=== PATIENT | male | born 1930 | race Caucasian/White ===

== ENCOUNTER → 2017-04-17 | Outpatient (CLI) | payer MEDICARE, BC ==
[2017-04-17 14:39] LABS: Basophils % (A) 1 %; CH 32.1; CHCM 32.6; Eosinophils # (A) 0.4 k/uL (0-0.7); Eosinophils % (A) 7 %; HCT 41.5 % (39.0-53.0); HDW 2.31; HGB 13.3 gm/dL (13.0-17.5); Luc # (Auto) 0.19; Luc % (Auto) 3; Lymphocytes # (A) 0.7 k/uL (1.0-4.8); Lymphocytes % (A) 13 %; MCH 31.6 pg (25.0-35.0); MCV 98.8 fL (80.0-100.0); Mean Platelet Volume 6.6; Monocytes # (A) 0.4 k/uL (0-1.0); Monocytes % (A) 7 %; Neutrophils # (A) 3.8 k/uL (1.3-7.7); Neutrophils % (A) 69 %; RBC 4.21 m/uL (4.30-5.90); RDW 13.5 % (11.5-15.5); WBC 5.5 k/uL (3.8-10.6); WBC (Perox) 5.44
[2017-04-17 14:45] LABS: Calcium 9.1 mg/dL (8.4-10.2); Potassium 4.5 mmol/L (3.5-5.1); Total Bilirubin 0.6 mg/dL (0.2-1.3); Total Protein 7.1 g/dL (6.3-8.2)
== END ==
LOC: LABWHC1 14:04
PROVIDERS: ATTEND Internal Medicine
DX: N18.9 Chronic kidney disease, unspecified (principal)
CPT/HCPCS: 36415; 80053; 85025

== ENCOUNTER → 2017-04-22 | Outpatient (CLI) | payer MEDICARE, BC ==
--- NOTE | 2017-04-22 22:01 | US ---
EXAMINATION TYPE: US kidneys/renal and bladder DATE OF EXAM: 04/22/2017 COMPARISON: CT CLINICAL HISTORY: N28.9 Known Renal disease or anomaly. EXAM MEASUREMENTS: Right Kidney: 9.6 x 3.8 x 4.8 cm Left Kidney: 10.0 x 4.9 x 3.8 cm Right Kidney: No hydronephrosis or masses seen Left Kidney: No hydronephrosis or masses seen Bladder: wnl Bilateral Jets seen: Yes There is no evidence for hydronephrosis at this point in time. No nephrolithiasis is seen. No migdalia s are identified. The urinary bladder is anechoic. Bilateral ureteral jets are seen. IMPRESSION: No significant abnormality.
== END | disposition home or self-care (01) ==
LOC: RADUSMAIN 17:41
PROVIDERS: ATTEND Internal Medicine
DX: N28.9 Disorder of kidney and ureter, unspecified (principal)
CPT/HCPCS: 76770

== ENCOUNTER → 2017-07-10 | Outpatient (CLI) | payer MEDICARE, BC ==
[2017-07-10 15:14] LABS: Potassium 5.2 mmol/L (3.5-5.1)
== END | disposition home or self-care (01) ==
LOC: LABWHC1 14:14
PROVIDERS: ATTEND Internal Medicine
DX: N18.9 Chronic kidney disease, unspecified (principal)
CPT/HCPCS: 36415; 80048

== ENCOUNTER → 2017-11-17 | Outpatient (CLI) | payer MEDICARE, BC ==
[2017-11-17 13:37] LABS: Appearance,Urine Clear (Clear); Bilirubin,Urine Negative (Negative); Blood,Urine Negative (Negative); Color,Urine Light Yellow; Glucose,Urine (UA) Negative (Negative); Ketones,Urine Negative (Negative); Leukocyte Esterase,Urine Negative (Negative); Nitrite,Urine Negative (Negative); Protein,Urine Negative (Negative); Specific Gravity,Urine 1.007 (1.001-1.035); Urobilinogen,Urine <2.0 mg/dL (<2.0)
[2017-11-17 13:54] LABS: Calcium 9.9 mg/dL (8.4-10.2); Magnesium 2.2 mg/dL (1.6-2.3); Phosphorus 3.8 mg/dL (2.5-4.5); Potassium 5.5 mmol/L (3.5-5.1); Total Bilirubin 0.5 mg/dL (0.2-1.3); Total Protein 6.9 g/dL (6.3-8.2); Uric Acid 7.8 mg/dL (3.5-8.5)
[2017-11-17 21:49] LABS: Parathyroid Hormone Intact 91.7 pg/mL (14.0-72.0)
== END | disposition home or self-care (01) ==
LOC: LABWHC1 12:41
PROVIDERS: ATTEND Internal Medicine
DX: N18.3 Chronic kidney disease, stage 3 (moderate) (principal); N39.0 Urinary tract infection, site not specified; N25.81 Secondary hyperparathyroidism of renal origin; E55.9 Vitamin D deficiency, unspecified; M10.9 Gout, unspecified
CPT/HCPCS: 36415; 80053; 81003; 82306; 82570; 83735; 83970; 84100; 84156; 84550

== ENCOUNTER → 2018-03-04 | Outpatient (CLI) | payer MEDICARE, BC ==
[2018-03-04 13:11] LABS: HCT 41.6 % (39.0-53.0); HGB 13.7 gm/dL (13.0-17.5); MCH 31.7 pg (25.0-35.0); MCHC 32.9 g/dL (31.0-37.0); MCV 96.4 fL (80.0-100.0); Mean Platelet Volume 6.8; Platelet Count 223 k/uL (150-450); RBC 4.32 m/uL (4.30-5.90); RDW 13.5 % (11.5-15.5); WBC 6.1 k/uL (3.8-10.6)
[2018-03-04 13:43] LABS: Calcium 9.5 mg/dL (8.4-10.2); Magnesium 2.2 mg/dL (1.6-2.3); Phosphorus 4.4 mg/dL (2.5-4.5); Potassium 5.6 mmol/L (3.5-5.1); Total Bilirubin 0.5 mg/dL (0.2-1.3); Total Protein 6.9 g/dL (6.3-8.2); Uric Acid 6.8 mg/dL (3.5-8.5)
[2018-03-04 19:14] LABS: Vitamin D 25 Hydroxy 38.4 ng/mL (30.0-100.0)
[2018-03-04 20:47] LABS: Parathyroid Hormone Intact 106.7 pg/mL (14.0-72.0)
== END | disposition home or self-care (01) ==
LOC: LABWHC1 12:42
PROVIDERS: ATTEND Internal Medicine
DX: N18.3 Chronic kidney disease, stage 3 (moderate) (principal); D64.9 Anemia, unspecified; N25.81 Secondary hyperparathyroidism of renal origin; E55.9 Vitamin D deficiency, unspecified; M10.9 Gout, unspecified
CPT/HCPCS: 36415; 80053; 82306; 83735; 83970; 84100; 84550; 85027

== ENCOUNTER → 2019-01-12 | Outpatient (CLI) | payer MEDICARE, BC ==
[2019-01-13 01:45] LABS: Albumin 4.2 g/dL (3.80-4.90); Anion Gap 10.8 mmol/L (4.00-12.00); Calcium 9.2 mg/dL (8.7-10.3); Carbon Dioxide 26.2 mmol/L (21.6-31.8); Globulin 2.1 g/dL (1.6-3.3); Potassium 4.7 mmol/L (3.5-5.5); Total Bilirubin 0.5 mg/dL (0.2-1.2); Total Protein 6.3 g/dL (6.2-8.2)
== END ==
LOC: LABWHC1 15:40
PROVIDERS: ATTEND Internal Medicine Interventional Cardiology
DX: I48.1 Persistent atrial fibrillation (principal)
CPT/HCPCS: 36415; 80053; 84443

== ENCOUNTER 2020-04-06 16:08 | Emergency (ER) | payer MEDICARE, BC ==
[2020-04-06 16:23] VITALS: RESP 18; TEMP 97.7
--- NOTE | 2020-04-06 16:46 | ED ---
Fall HPI - General Chief Complaint: Fall Stated Complaint: fall, lt knee injury Time Seen by Provider: 04/06/20 16:16 Source: EMS Mode of arrival: EMS - History of Present Illness Initial Comments: Patient is an 89-year-old male presenting to the emergency department after a fall. Patient states she was sitting at his kitchen table reading within the next he knew he woke up on the ground. Patient states he has been falling asleep very easily over the past 2 weeks. Patient states he landed mostly on his right side. He states he is on Eliquis secondary to A. fib. He states he was not able to get up by himself so he was able to get to his phone and called his daughters. His daughters came to the house and called EMS. Patient is complaining of some pain of his left knee however he states he needs a replacement in his knee and this is been a chronic issue. He states he is having some mild right chest discomfort from landing on the right side. He does admit to an increase of shortness of breath over the past few days. He is not on oxygen at home. He denies any neck pain. He states he is simply sore. He has no further complaints at this time. - Related Data Allergies Allergy/AdvReac Type Severity Reaction Status Date / Time No Known Allergies Allergy Verified 04/06/20 18:16 Review of Systems ROS Statement: Those systems with pertinent positive or pertinent negative responses have been documented in the HPI. ROS Other: All systems not noted in ROS Statement are negative. Past Medical History Past Medical History: Atrial Fibrillation, Hypertension History of Any Multi-Drug Resistant Organisms: None Reported Additional Past Surgical History / Comment(s): Cataract surgery left eye-2019 Past Psychological History: No Psychological Hx Reported Smoking Status: Never smoker Past Alcohol Use History: None Reported Past Drug Use History: None Reported General Exam - General Exam Comments Initial Comments: GENERAL: Well-appearing, well-nourished and in no acute distress. HEAD: Atraumatic, normocephalic. No hematomas. No signs of basal skull fracture. EYES: Pupils equal round and reactive to light, extraocular movements intact, sclera anicteric, conjunctiva are normal. ENT: TMs normal, nares patent, oropharynx clear without exudates. Moist mucous membranes. NECK: Patient arrived in c-collar. After c-collar was cleared, patient has normal, pain-free range of motion. No midline tenderness. Supple without lymphadenopathy or JVD. LUNGS: Decreased sounds on the right compared to left No wheezes rales or rhonchi. Mild pain with palpation of the right lateral ribs. HEART: Regular rate and rhythm without murmurs, rubs or gallops. ABDOMEN: Soft, nontender, normoactive bowel sounds. No guarding, no rebound. No masses appreciated. : Deferred EXTREMITIES: Mild pain to palpation of the left knee, full range of motion. Full range of motion of other 3 extremities. No pitting or edema. No clubbing or cyanosis. NEUROLOGICAL: Cranial nerves II through XII grossly intact. Normal speech, normal gait. PSYCH: Normal mood, normal affect. SKIN: Warm, Dry, normal turgor, no rashes or lesions noted. Limitations: no limitations Course Vital Signs 04/06/20 04/06/20 04/06/20 16:16 16:30 17:00 Temperature 97.7 F Pulse Rate 71 88 90 Respiratory 18 18 18 Rate Blood Pressure 135/87 135/87 120/85 O2 Sat by Pulse 99 96 97 Oximetry 04/06/20 04/06/20 04/06/20 17:30 18:00 18:23 Temperature Pulse Rate 87 91 96 Respiratory 18 18 18 Rate Blood Pressure 139/82 139/82 142/89 O2 Sat by Pulse 97 97 98 Oximetry 04/06/20 04/06/20 19:10 20:35 Temperature Pulse Rate 102 H 79 Respiratory 18 18 Rate Blood Pressure 142/91 132/84 O2 Sat by Pulse 98 96 Oximetry Medical Decision Making - Medical Decision Making Patient is an 89-year-old male presenting after falling at home. Patient is on a Eliquis tachycardia. A. fib. Patient's exam reveals a sore left knee however this is chronic in nature, right-sided rib pain. CT of the brain shows no acute intracranial hemorrhage, C-spine shows no acute fracture. Chest x-ray and x-ray of the right ribs showed no acute rib fracture or pneumothorax. There is a stable chronic right pleural effusion. 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 Patient's lab work shows no acute abnormalities. Urine shows no signs of infection, troponin is normal, patient's EKG shows A. fib, similar to previous. Patient to receive pain medicine in the ER and has been feeling improvement. Patient was able to stand and ambulate around his hospital bed. He normally uses a walker at home. Patient's daughter is here with him now and is comfortable with patient going home. Patient is also wanting to be discharged home. Patient's daughter states she will stay with him tonight. Strict return parameters were discussed with the patient and his daughter and they both verbalized understanding. Case discussed with Dr. Lu. - Lab Data Result diagrams: 04/06/20 16:50 04/06/20 16:50 Lab Results 04/06/20 04/06/20 04/06/20 Range/Units 16:50 16:50 16:50 WBC 6.4 (3.8-10.6) k/uL RBC 3.99 L (4.30-5.90) m/uL Hgb 13.2 (13.0-17.5) gm/dL Hct 41.4 (39.0-53.0) % MCV 103.9 H (80.0-100.0) fL MCH 33.2 (25.0-35.0) pg MCHC 32.0 (31.0-37.0) g/dL RDW 14.7 (11.5-15.5) % Plt Count 148 L (150-450) k/uL Neutrophils % 78 % Lymphocytes % 5 % Monocytes % 9 % Eosinophils % 6 % Basophils % 1 % Neutrophils # 5.0 (1.3-7.7) k/uL Lymphocytes # 0.3 L (1.0-4.8) k/uL Monocytes # 0.6 (0-1.0) k/uL Eosinophils # 0.4 (0-0.7) k/uL Basophils # 0.0 (0-0.2) k/uL Macrocytosis Slight PT 11.4 (9.0-12.0) sec INR 1.1 (<1.2) APTT 25.6 (22.0-30.0) sec Sodium 131 L (137-145) mmol/L Potassium 5.2 H (3.5-5.1) mmol/L Chloride 94 L (98-107) mmol/L Carbon Dioxide 28 (22-30) mmol/L Anion Gap 9 mmol/L BUN 46 H (9-20) mg/dL Creatinine 1.65 H (0.66-1.25) mg/dL Est GFR (CKD-EPI)AfAm 42 (>60 ml/min/1.73 sqM) Est GFR (CKD-EPI)NonAf 37 (>60 ml/min/1.73 sqM) Glucose 124 H (74-99) mg/dL Calcium 9.1 (8.4-10.2) mg/dL Magnesium 2.2 (1.6-2.3) mg/dL Total Bilirubin 0.8 (0.2-1.3) mg/dL AST 27 (17-59) U/L ALT 17 (4-49) U/L Alkaline Phosphatase 96 (38-126) U/L Troponin I (0.000-0.034) ng/mL Total Protein 6.9 (6.3-8.2) g/dL Albumin 3.9 (3.5-5.0) g/dL Urine Color Urine Appearance (Clear) Urine pH (5.0-8.0) Ur Specific [place] (1.001-1.035) Urine Protein (Negative) Urine Glucose (UA) (Negative) Urine Ketones (Negative) Urine Blood (Negative) Urine Nitrite (Negative) Urine Bilirubin (Negative) Urine Urobilinogen (<2.0) mg/dL Ur Leukocyte Esterase (Negative) Urine RBC (0-5) /hpf Urine WBC (0-5) /hpf 04/06/20 04/06/20 Range/Units 16:50 18:04 WBC (3.8-10.6) k/uL RBC (4.30-5.90) m/uL Hgb (13.0-17.5) gm/dL Hct (39.0-53.0) % MCV (80.0-100.0) fL MCH (25.0-35.0) pg MCHC (31.0-37.0) g/dL RDW (11.5-15.5) % Plt Count (150-450) k/uL Neutrophils % % Lymphocytes % % Monocytes % % Eosinophils % % Basophils % % Neutrophils # (1.3-7.7) k/uL Lymphocytes # (1.0-4.8) k/uL Monocytes # (0-1.0) k/uL Eosinophils # (0-0.7) k/uL Basophils # (0-0.2) k/uL Macrocytosis PT (9.0-12.0) sec INR (<1.2) APTT (22.0-30.0) sec Sodium (137-145) mmol/L Potassium (3.5-5.1) mmol/L Chloride (98-107) mmol/L Carbon Dioxide (22-30) mmol/L Anion Gap mmol/L BUN (9-20) mg/dL Creatinine (0.66-1.25) mg/dL Est GFR (CKD-EPI)AfAm (>60 ml/min/1.73 sqM) Est GFR (CKD-EPI)NonAf (>60 ml/min/1.73 sqM) Glucose (74-99) mg/dL Calcium (8.4-10.2) mg/dL Magnesium (1.6-2.3) mg/dL Total Bilirubin (0.2-1.3) mg/dL AST (17-59) U/L ALT (4-49) U/L Alkaline Phosphatase (38-126) U/L Troponin I <0.012 (0.000-0.034) ng/mL Total Protein (6.3-8.2) g/dL Albumin (3.5-5.0) g/dL Urine Color Yellow Urine Appearance Clear (Clear) Urine pH 5.5 (5.0-8.0) Ur Specific [place] 1.010 (1.001-1.035) Urine Protein Negative (Negative) Urine Glucose (UA) Negative (Negative) Urine Ketones Negative (Negative) Urine Blood Trace H (Negative) Urine Nitrite Negative (Negative) Urine Bilirubin Negative (Negative) Urine Urobilinogen <2.0 (<2.0) mg/dL Ur Leukocyte Esterase Moderate H (Negative) Urine RBC 1 (0-5) /hpf Urine WBC 5 (0-5) /hpf - EKG Data EKG Comments: Atrial fibrillation, left axis deviation, no signs of acute ischemia. Ventri cular rate 97, QRS duration 92, QTC 467. Disposition Clinical Impression: Syncope, Fall, Contusion of right chest wall Disposition: HOME SELF-CARE Condition: Stable Instructions (If sedation given, give patient instructions): Fall Prevention for Older Adults (ED) Additional Instructions: Please return to the Emergency Department if symptoms worsen or any other concerns. Follow-up with library technical assistant and PCP. Is patient prescribed a controlled substance at d/c from ED?: No Referrals: Darby Ryan MD [Primary Care Provider] - 1-2 days
[2020-04-06 17:02] LABS: Basophils % (A) 1 %; Eosinophils # (A) 0.4 k/uL (0-0.7); Eosinophils % (A) 6 %; HCT 41.4 % (39.0-53.0); HGB 13.2 gm/dL (13.0-17.5); Lymphocytes # (A) 0.3 k/uL (1.0-4.8); Lymphocytes % (A) 5 %; MCH 33.2 pg (25.0-35.0); MCV 103.9 fL (80.0-100.0); Macrocytosis Slight; Mean Platelet Volume 7.2; Monocytes # (A) 0.6 k/uL (0-1.0); Monocytes % (A) 9 %; Neutrophils % (A) 78 %; Platelet Count 148 k/uL (150-450); RBC 3.99 m/uL (4.30-5.90); RDW 14.7 % (11.5-15.5); WBC 6.4 k/uL (3.8-10.6)
[2020-04-06 17:08] LABS: Albumin 3.9 g/dL (3.5-5.0); Calcium 9.1 mg/dL (8.4-10.2); Magnesium 2.2 mg/dL (1.6-2.3); Potassium 5.2 mmol/L (3.5-5.1); Total Bilirubin 0.8 mg/dL (0.2-1.3); Total Protein 6.9 g/dL (6.3-8.2)
[2020-04-06 17:13] LABS: INR 1.1 (<1.2); Partial Thromboplastin Time 25.6 sec (22.0-30.0); Prothrombin Time 11.4 sec (9.0-12.0)
[2020-04-06] MEDS ORDERED: MORPHINE SULFATE 2 MG/ML SYRINGE IVP ONE (17:37)
[2020-04-06 18:23] LABS: Appearance,Urine Clear (Clear); Bilirubin,Urine Negative (Negative); Blood,Urine Trace (Negative); Color,Urine Yellow; Glucose,Urine (UA) Negative (Negative); Ketones,Urine Negative (Negative); Leukocyte Esterase,Urine Moderate (Negative); Nitrite,Urine Negative (Negative); PH, Urine 5.5 (5.0-8.0); Protein,Urine Negative (Negative); RBC,Urine 1 /hpf (0-5); Urobilinogen,Urine <2.0 mg/dL (<2.0); WBC,Urine 5 /hpf (0-5)
--- NOTE | 2020-04-06 18:24 | CT ---
EXAMINATION TYPE: CT brain walkerine wo con DATE OF EXAM: 04/06/2020 COMPARISON: 10/23/2011 HISTORY: FALL INJURY PAIN CT DLP: 1623.1 mGycm Automated exposure control for dose reduction was used. TECHNIQUE: CT scan of the head and cervical spine are performed without contrast. FINDINGS: There is no acute intracranial hemorrhage, mass effect, or midline shift identified. The ventricles and sulci are within normal limits in size. The globes are intact and the visualized sin uses are clear. Cervical spine is visualized in its entirety from C1 through upper thoracic levels and demonstrates s atisfactory alignment without evidence of acute fracture or dislocation. Prevertebral soft tissue ap pears within normal limits. Prominent multilevel cervical spondylosis changes are noted. The C1-C2 ar ticulation is unremarkable. IMPRESSION: 1. There is no acute fracture or dislocation evident in the cervical spine. 2. No acute intracranial hemorrhage, mass effect, or midline shift is seen. 3. Incidental right pleural effusion noted.
--- NOTE | 2020-04-06 19:12 | XR ---
PROCEDURE: XR ribs RT w pa chest xray - 5V DATE AND TIME: 04/06/2020 6:57 PM CLINICAL INDICATION: PHH; pain, fall TECHNIQUE: Department protocol COMPARISON: 11/18/2019 chest radiograph FINDINGS: There is mild/moderate enlargement of the cardiac silhouette. There is prominent bilateral silhouetting of the pulmonary vasculature bilaterally throughout the silva gs, consistent with a prominent interstitial pattern which can correlate with a clinical diagnosis of interstitial phase pulmonary edema. The previously seen right pleural effusion is redemonstrated on the similar in appearance. No pneumot horax. Skeletal structures: The skeletal structures are intact. There is no displaced rib fracture. The soft tissues are unremarkable. IMPRESSION: Negative for rib fracture or pneumothorax. 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
[2020-04-06] MEDS ORDERED: traMADol 50 MG STARTER PACK 3 TAB BTL PO STA (19:57)
[2020-04-06 20:35] VITALS: BP 132/84; PULSE 79
== END 2020-04-06 20:40 | disposition home or self-care (01) ==
LOC: EC 16:08
DX: S20.211A Contusion of right front wall of thorax, initial encounter (principal); R55 Syncope and collapse; M25.562 Pain in left knee; J90 Pleural effusion, not elsewhere classified; I48.91 Unspecified atrial fibrillation; Z79.01 Long term (current) use of anticoagulants; Z99.81 Dependence on supplemental oxygen; W17.89XA Other fall from one level to another, initial encounter; Y93.89 Activity, other specified; Y92.000 Kitchen of unspecified non-institutional (private) residence as the place of occurrence of the external cause
CPT/HCPCS: 36415; 93005; 80053; 83735; 84484; 85025; 85610; 85730; 81001; 71101; 72125; 70450; 99285; 96374; J2270

== ENCOUNTER → 2020-05-01 | Outpatient (CLI) | payer MEDICARE, BC ==
[2020-05-01 14:52] LABS: Basophils % (A) 1 %; Eosinophils # (A) 0.5 k/uL (0-0.7); Eosinophils % (A) 10 %; HCT 40.7 % (39.0-53.0); Hypochromasia Slight; Lymphocytes # (A) 0.5 k/uL (1.0-4.8); Lymphocytes % (A) 10 %; MCH 34.1 pg (25.0-35.0); MCV 106.5 fL (80.0-100.0); Macrocytosis Moderate; Mean Platelet Volume 7.5; Monocytes # (A) 0.5 k/uL (0-1.0); Monocytes % (A) 11 %; Neutrophils # (A) 3.1 k/uL (1.3-7.7); Neutrophils % (A) 65 %; Platelet Count 171 k/uL (150-450); RBC 3.82 m/uL (4.30-5.90); RDW 14.8 % (11.5-15.5); WBC 4.8 k/uL (3.8-10.6)
[2020-05-01 23:41] LABS: African American GFR (CKD) 38.1 (60.0-200.0); Albumin/Globulin Ratio 1.67 (1.60-3.17); Anion Gap 6.1 mmol/L (4.00-12.00); BUN/Creat Ratio 23.33 Ratio (12.00-20.00); Calcium 9.2 mg/dL (8.7-10.3); Carbon Dioxide 30.9 mmol/L (21.6-31.8); Globulin 2.4 g/dL (1.6-3.3); Non-African American GFR(CKD) 32.9 (60.0-200.0); Potassium 4.6 mmol/L (3.5-5.5); Total Bilirubin 0.8 mg/dL (0.3-1.2); Total Protein 6.4 g/dL (6.2-8.2)
== END | disposition home or self-care (01) ==
LOC: LABWHC1 13:46
PROVIDERS: ATTEND Internal Medicine
DX: I50.9 Heart failure, unspecified (principal); N19 Unspecified kidney failure
CPT/HCPCS: 36415; 80053; 83880; 85025